=== PATIENT | female | born 1985 | race Two or more races ===

== ENCOUNTER → 2022-02-27 | Outpatient (CLI) | payer MEDICAID ==
[2022-02-27 08:54] LABS: Hematocrit 39.6 % (36.0-46.0); Hemoglobin 13.1 g/dL (12.2-16.2); Mean Corpuscular Hemoglobin 32.2 pg (28.0-32.0); Mean Corpuscular Hgb Conc. 33.1 g/dL (32.0-36.0); Mean Corpuscular Volume 97.1 fL (80.0-100.0); Red Blood Cells 4.08 10^6/uL (4.0-5.20); White Blood Cell 9.6 10^3/uL (4.4-10.8)
[2022-02-27 09:03] LABS: Basophils % (manual) 0 (0.0-2.0); Blast Cells 0; Metamyelocytes % 0; Myelocytes % 0; Promyelocytes % 0; Reactive Lymphocytes 0
== END | disposition home or self-care (01) ==
LOC: LAB 08:22
PROVIDERS: ATTEND Obstetrics & Gynecology
DX: O99.810 Abnormal glucose complicating pregnancy (principal); Z3A.00 Weeks of gestation of pregnancy not specified
CPT/HCPCS: 36415; 83036; 85007; 85027

== ENCOUNTER → 2022-03-08 | Outpatient (CLI) | payer MEDICAID | END | disposition home or self-care (01) | LOC: LAB 08:21 | PROVIDERS: ATTEND Obstetrics & Gynecology | DX: O99.810 Abnormal glucose complicating pregnancy (principal); Z3A.00 Weeks of gestation of pregnancy not specified | CPT/HCPCS: 82951 ==

== ENCOUNTER 2022-03-27 13:17 | Observation (INO) | payer MEDICAID ==
[~2022-03-27] VITALS: Ht 170.2 cm; Wt 104.3 kg
[2022-03-27] MEDS ORDERED: TERBUTALINE SULFATE 1 MG/ML 1ML VIAL SC SCH (15:00)
== END 2022-03-27 16:05 | disposition home or self-care (01) ==
LOC: UNDOADMOB 13:17 → LDRP 13:17
PROVIDERS: ADMIT Obstetrics & Gynecology; ATTEND Obstetrics & Gynecology
DX: O24.419 Gestational diabetes mellitus in pregnancy, unspecified control (principal); Z3A.31 31 weeks gestation of pregnancy
CPT/HCPCS: 59025; 76818; 81002; 82948; 82962; 94760; 96372; G0378; J3105

== ENCOUNTER 2022-04-03 09:59 | Observation (INO) | payer MEDICAID ==
[~2022-04-03] VITALS: Ht 170.2 cm; Wt 86.2 kg
[2022-04-03] MEDS ORDERED: TERBUTALINE SULFATE 1 MG/ML 1ML VIAL SC SCH (12:15)
== END 2022-04-03 13:15 | disposition home or self-care (01) ==
LOC: LDRP 10:59 → UNDOADMOB 10:59 → LDRP 11:46 → UNDODISOB 13:15
PROVIDERS: ADMIT Obstetrics & Gynecology; ATTEND Obstetrics & Gynecology
DX: O60.03 Preterm labor without delivery, third trimester (principal); O24.419 Gestational diabetes mellitus in pregnancy, unspecified control; Z3A.32 32 weeks gestation of pregnancy
CPT/HCPCS: 59025; 76818; 81002; 82948; 82962; 94760; 96372; G0378; J3105

== ENCOUNTER 2022-04-10 08:12 | Observation (INO) | payer MEDICAID ==
[~2022-04-10] VITALS: Ht 170.2 cm; Wt 101.6 kg
[2022-04-10] MEDS ORDERED: PREN-96 PO (15:07)
[2022-04-10] MEDS ORDERED: TERBUTALINE SULFATE 1 MG/ML 1ML VIAL SC SCH (16:00)
== END 2022-04-10 16:35 | disposition home or self-care (01) ==
LOC: UNDOADMOB 14:16 → LDRP 14:16
PROVIDERS: ADMIT Obstetrics & Gynecology; ATTEND Obstetrics & Gynecology
DX: O60.03 Preterm labor without delivery, third trimester (principal); O24.419 Gestational diabetes mellitus in pregnancy, unspecified control; Z3A.33 33 weeks gestation of pregnancy
CPT/HCPCS: 59025; 76818; 81002; 82948; 82962; 94760; 96372; G0378; J3105

== ENCOUNTER 2022-04-17 07:48 | Observation (INO) | payer MEDICAID ==
[~2022-04-17 07:48] MED LIST: PREN-96 PO
== END 2022-04-17 15:00 | disposition home or self-care (01) ==
LOC: LDRP 13:52
PROVIDERS: ADMIT Obstetrics & Gynecology; ATTEND Obstetrics & Gynecology
DX: O24.419 Gestational diabetes mellitus in pregnancy, unspecified control (principal); Z3A.34 34 weeks gestation of pregnancy
CPT/HCPCS: 59025; 76817; 76818; 81002; 82948; 82962; 94760; G0378

== ENCOUNTER → 2022-04-23 | Outpatient (CLI) | payer MEDICAID ==
[~2022-04-23] MED LIST changes: +NIFE10CA3 PO
[2022-04-23 10:54] LABS: Basophils # (auto) 0 10 ^3/uL (0-0.2); Basophils % (auto) 0.4 % (0.0-2.0); Eosinophils # (auto) 0.1 10 ^3/uL (0-0.8); Eosinophils % (auto) 0.9 % (0.0-7.0); Hematocrit 40.8 % (36.0-46.0); Hemoglobin 13.7 g/dL (12.2-16.2); Lymphocytes % (auto) 13.7 % (10.0-50.0); Mean Corpuscular Hemoglobin 32.3 pg (28.0-32.0); Mean Corpuscular Hgb Conc. 33.5 g/dL (32.0-36.0); Mean Corpuscular Volume 96.2 fL (80.0-100.0); Monocytes # (auto) 0.4 10 ^3/uL (0-1.3); Monocytes % (auto) 6.2 % (0.0-12.0); Neutrophils # (auto) 5.6 10 ^3/uL (1.6-8.6); Neutrophils % (auto) 78.8 % (37.0-80.0); Nucleated Red Blood Cells % 0.1 %; Red Blood Cells 4.24 10^6/uL (4.0-5.20); Red Cell Distribution Width 13.9 % (11.8-14.3); White Blood Cell 7.1 10^3/uL (4.4-10.8)
[2022-04-24 08:07] LABS: RPR Non Reactive (Non Reactive)
== END | disposition home or self-care (01) ==
LOC: LAB 10:24
PROVIDERS: ATTEND Obstetrics & Gynecology
DX: Z34.80 Encounter for supervision of other normal pregnancy, unspecified trimester (principal); Z3A.00 Weeks of gestation of pregnancy not specified
CPT/HCPCS: 36415; 84112; 85025; 86592

== ENCOUNTER 2022-04-24 07:57 | Observation (INO) | payer MEDICAID ==
[~2022-04-24 07:57] MED LIST changes: -NIFE10CA3 PO
[2022-04-24] MEDS ORDERED: NIFE10CA3 PO (11:28)
== END 2022-04-24 11:40 | disposition home or self-care (01) ==
LOC: LDRP 10:06 → UNDOADMOB 10:16 → LDRP 10:16
PROVIDERS: ADMIT Obstetrics & Gynecology; ATTEND Obstetrics & Gynecology
DX: O24.419 Gestational diabetes mellitus in pregnancy, unspecified control (principal); Z3A.35 35 weeks gestation of pregnancy
CPT/HCPCS: 59025; 76818; 81002; 82948; 82962; 94760; G0378

== ENCOUNTER 2022-05-01 11:28 | Observation (INO) | payer MEDICAID ==
[~2022-05-01 11:28] MED LIST changes: +NIFE10CA3 PO
== END 2022-05-01 12:38 | disposition home or self-care (01) ==
LOC: LDRP 11:39 → UNDOADMOB 11:39 → LDRP 11:43
PROVIDERS: ADMIT Obstetrics & Gynecology; ATTEND Obstetrics & Gynecology
DX: O24.419 Gestational diabetes mellitus in pregnancy, unspecified control (principal); O60.03 Preterm labor without delivery, third trimester; O09.523 Supervision of elderly multigravida, third trimester; Z3A.36 36 weeks gestation of pregnancy
CPT/HCPCS: 59025; 76818; 81002; 82948; 82962; 94760; G0378

== ENCOUNTER 2022-05-08 10:14 | Observation (INO) | payer MEDICAID | END 2022-05-08 11:35 | disposition home or self-care (01) | LOC: LDRP 10:14 → UNDOADMOB 10:14 → LDRP 10:48 | PROVIDERS: ADMIT Obstetrics & Gynecology; ATTEND Obstetrics & Gynecology | DX: O24.419 Gestational diabetes mellitus in pregnancy, unspecified control (principal); Z3A.37 37 weeks gestation of pregnancy; Z98.891 History of uterine scar from previous surgery | CPT/HCPCS: 59025; 76818; 81002; 82948; 82962; 94760; G0378 ==

== ENCOUNTER 2024-12-11 13:23 | Inpatient (IN) | payer MEDICAID ==
[~2024-12-11] VITALS: Ht 170.2 cm; Wt 95.9 kg
[~2024-12-11 13:23] MED LIST changes: +DOCU-94 PO; +HYDR-4902 PO; +IBUP-1456 PO; -NIFE10CA3 PO; +NIFE10CA58 PO
[2024-12-11 15:56] LABS: Chloride 106 mmol/L (98-107); Potassium 3.9 mmol/L (3.5-5.1); Sodium 138 mmol/L (136-145)
[2024-12-11 15:57] LABS: Anion Gap 8 (5-15); Calcium 10.2 mg/dL (8.7-10.4); Carbon Dioxide 24 mmol/L (20-31)
[2024-12-11 15:58] LABS: Hematocrit 36.5 % (36.0-46.0); Hemoglobin 11.8 g/dL (12.2-16.2); Mean Corpuscular Hemoglobin 27.1 pg (28.0-32.0); Mean Corpuscular Volume 84.2 fL (80.0-100.0); Nucleated Red Blood Cells % 0.1 %
[2024-12-11 16:02] LABS: BUN/Creatinine Ratio 12.5 (10.0-20.0); Blood Urea Nitrogen 9 mg/dL (9-23); Glucose 91 mg/dL (74-106)
--- NOTE | 2024-12-11 16:04 | ED.PDOC ---
History of Present Illness HPI Comments 39 y/o F presents with 3x month history of 'lump' to her left breast. Patient reports no significant pertinent medical history and coming to the ED, today, following recent development of said 'lump' increasing in size and having associated 'discharge leakage' after initial unprovoked and gradual onset. She denies any recent injuries, known skin contact exposure, or any known relevant events pertinent to her current condition. Patient denies having any associated pain, skin discoloration, fever, chills, or further associated symptoms. Chief Complaint: Wound Check Time Seen by MD: 15:15 Reviewed Notes: Nurses Notes, Medications, Allergies Allergies: Coded Allergies: NO KNOWN ALLERGIES (Unverified , 12/11/24) Information Source: Patient Mode of Arrival: Ambulatory Severity: Moderate Timing: Months Duration: Since onset Prehospital treatment: None Past Medical History PAST MEDICAL HISTORY: Denies Surgical History: Denies all surgeries ENERGY OPERATIONS VICE PRESIDENT History: No Pertinent ENERGY OPERATIONS VICE PRESIDENT History Family History Family History: Unknown Social History Smoker: Non-Smoker Alcohol: Denies ETOH Use Drugs: Denies Drug Use Lives In: Home All Other Systems: Reviewed and Negative (Comprehensive review of systems are negative unless otherwise stated in HPI) Physical Exam General Appearance: No Apparent Distress, Normal HEENT: Normal ENT Inspection, Pharynx Normal, TMs Normal Neck: Full Range of Motion, Non-Tender, Normal, Normal Inspection Respiratory: Chest Non-Tender, Lungs Clear, No Accessory Muscle Use, No Respiratory Distress, Normal Breath Sounds Cardiovascular: No Edema, No JVD, No Murmur, No Gallop, Normal Peripheral Pulses, Regular Rate/Rhythm Breast Exam: Deferred Gastrointestinal: No Organomegaly, Non Tender, No Pulsatile Mass, Normal Bowel Sounds, Soft Genitalia: Deferred Pelvic: Deferred Rectal: Deferred Extremities: No calf tenderness, Normal capillary refill, Normal inspection, Normal range of motion, Non-tender, No pedal edema Musculoskeletal : Apperance: Normal Neurologic: Alert, paediatric surgeon II-XII nml as Tested, No Motor Deficits, Normal Affect, Normal Mood, No Sensory Deficits Cerebellar Function: Normal Reflexes: Normal Skin: Dry, Normal Color, Warm, Other (5cm x 5 cm fluctuate mass to the left breast without obvious sign of discharge ) Lymphatic: No Adenopathy Was a procedure done? Was a procedure done?: No Differential Dx Considerations may include: malignant tumor, abscess, dermatitis, cellulitis, among others X-Ray, Labs, Meds, VS Vital Signs Date Time Temp Pulse Resp B/P (MAP) Pulse Ox O2 Delivery O2 Flow Rate FiO2 12/11/24 18:09 98.2 73 18 124/81 (95) 95 98.2 12/11/24 15:32 98.9 81 18 132/79 (96) 99 98.9 12/11/24 13:32 98.2 87 20 150/85 (106) 97 98.2 Lab Test 12/11/24 15:32 Range/Units White Blood Count 10.5 4.4-10.8 10^3/uL Red Blood Count 4.34 4.0-5.20 10^6/uL Hemoglobin 11.8 L 12.2-16.2 g/dL Hematocrit 36.5 36.0-46.0 % Mean Corpuscular Volume 84.2 80.0-100.0 fL Mean Corpuscular Hemoglobin 27.1 L 28.0-32.0 pg Mean Corpuscular Hemoglobin Concent 32.2 32.0-36.0 g/dL Red Cell Distribution Width 17.7 H 11.8-14.3 % Platelet Count 378 140-450 10^3/uL Mean Platelet Volume 7.7 6.9-10.8 fL Neutrophils (%) (Auto) 82.5 H 37.0-80.0 % Lymphocytes (%) (Auto) 9.5 L 10.0-50.0 % Monocytes (%) (Auto) 7.3 0.0-12.0 % Eosinophils (%) (Auto) 0.3 0.0-7.0 % Basophils (%) (Auto) 0.4 0.0-2.0 % Neutrophils # (Auto) 8.6 1.6-8.6 10 ^3/uL Lymphocytes # (Auto) 1.0 0.4-5.4 10 ^3/uL Monocytes # (Auto) 0.8 0-1.3 10 ^3/uL Eosinophils # (Auto) 0 0-0.8 10 ^3/uL Basophils # (Auto) 0 0-0.2 10 ^3/uL Nucleated Red Blood Cells 0.1 % Sodium Level 138 136-145 mmol/L Potassium Level 3.9 3.5-5.1 mmol/L Chloride Level 106 98-107 mmol/L Carbon Dioxide Level 24 20-31 mmol/L Anion Gap 8 5-15 Blood Urea Nitrogen 9 9-23 mg/dL Creatinine 0.72 0.550-1.02 mg/dL Glomerular Filtration Rate Calc 109 >90 mL/min BUN/Creatinine Ratio 12.5 10.0-20.0 Serum Glucose 91 74-106 mg/dL Calcium Level 10.2 8.7-10.4 mg/dL Time of 1ST Reevaluation: 15:45 Reevaluation 1ST: Unchanged Patient Education/Counseling: Need For Follow Up Family Education/Counseling: No Family Present Additional Information Previous encounters reviewed: N/A Labs/tests ordered: CBC, BMP, CT chest w/contrast Imaging results in concurrent agreement with:CT chest w/contrast Additional historians interviewed: N/A Discuss care to medical personal and: patient SEPSIS Sepsis Screen Date sepsis recognized/suspect: Dec 11, 2024 Time Sepsis recognized/suspect: 1339 Recent Procedure: No On Antibiotic Therapy: No Respiratory Rate >20: No Heart Rate >90: No Temp<36 C (96.8 F) or >38.3 C: No SBP <90 or MAP <65 mmHG: No New Acute Mental Status Change: No Is the patient on CPAP, BIPAP,: No Physician Orders Chest With Contrast (12/11/24 15:20) Saline Lock (12/11/24 15:22) Allergies (12/11/24 19:17) Code Status (12/11/24 19:17) Oxygen Per Hour (12/11/24 19:17) Hydrocodone-Acet 5/325mg Tab ([place] 5/32 (12/11/24 19:30) Ondansetron Hcl (Zofran) (12/11/24 19:30) Docusate Sodium Capsule (Colace Capsule) (12/11/24 19:30) Complete Blood Count (12/12/24 04:00) Comprehensive Metabolic Panel (12/12/24 04:00) Cardiac Diet-2gna,Lofat,Lochol (12/12/24 Breakfast) Condition: Serious (12/11/24 19:17) Acetaminophen Tablet (Tylenol Tablet) (12/11/24 19:30) Bedrest With Bathroom Privileg (12/11/24 19:17) Sequential Compression Device (12/11/24 ) Vital Signs Date Time Temp Pulse Resp B/P (MAP) Pulse Ox O2 Delivery O2 Flow Rate FiO2 12/11/24 18:09 98.2 73 18 124/81 (95) 95 98.2 12/11/24 15:32 98.9 81 18 132/79 (96) 99 98.9 12/11/24 13:32 98.2 87 20 150/85 (106) 97 98.2 Laboratory Tests Test 12/11/24 15:32 White Blood Count 10.5 10^3/uL (4.4-10.8) Departure 1 Departure Time of Disposition: 20:12 (Patient with a large breast tumor a concern for possible spread to other rest. Patient without good follow up and having severe pain. We will admit patient for further workup and expert consultation) Impression: Primary Impression: Breast mass in female Additional Impression: Breast pain Disposition: ADMITTED INPATIENT Admit to: Med Surg Condition: Serious Critical Care Note Critical Care Time?: No Stability Stability form required: No Heart Score Heart Score: Heart Score Response (Comments) Value History N/A 0 EKG N/A 0 Age N/A 0 Risk Factors N/A 0 Troponin N/A 0 Total 0 I personally scribed for JEROMY GABRIEL MD ([email or web address]) on 12/11/24 at 16:04. Electronically submitted by Cortes Massey ([email or web address]). JEROMY GABRIEL MD Dec 11, 2024 16:04
[2024-12-11] MEDS: IOHEXOL 300 MG/ML 100ML BOTTLE IJ ONE (16:35)
--- NOTE | 2024-12-11 17:10 | DVH ---
CT Chest without intravenous contrast INDICATION: left breast mass TECHNIQUE: Following IV administration of 80 mL Omnipaque [address] of the chest wa s performed from the lung apices to the upper abdomen. Axial, coronal and sagittal multiplanar reform ats were performed. Radiation Dose : 1. Chest: CTDI volume is 25 mGy. Dose-length product is 1006 mGy*cm The dose indicators for CT are the volume Computed Tomography (CT) Dose Index (CTDIvol) and the Dose Length Product (DLP), and are measured in units of mGy and mGy-cm, respectively. These indicators are not patient dose, but values generated from the CT scanner acquisition factors. The report includes radiation exposure data for exposures received during this examination. Comparison: None Findings: There is a roughly 12 x 10 cm tumor mass in the left breast with central necrosis growing out to the skin surface. There is fibroglandular stranding surrounding the mass. Mass does not appear to breach the pectoralis muscle or anterior ribcage There is a smaller mass in the right breast measuring roughly 4 by 2.8 cm. There are enlarged left axillary lymph nodes The heart size is normal and there is no pericardial effusion. No enlarged hilar or mediastinal lymph nodes On lung windows small scattered pulmonary nodules are present with the largest in the left upper lobe measuring 6 mm. Limited views of the upper abdomen unremarkable. No definite lytic or blastic lesions of bone IMPRESSION: 1. Malignancy of the left breast with large tumor mass measuring roughly 12 x 10 cm surrounded by inf lammatory or neoplastic tissues. There are enlarged left axillary lymph nodes 2. There is a smaller 4 x 2.8 cm mass in the right breast possibly also malignant 3. Small pulmonary metastasis are present Radiation optimization: All CT scans at this facility use at least one of these dose optimization jonh hniques: automated exposure control mA and/or kV adjustment per patient size (includes targeted exam s where dose is matched to clinical indication) or iterative reconstruction.
[2024-12-11] MEDS ORDERED: ONDANSETRON HCL 4 MG/2 ML VIAL IV PRN (19:30)
[2024-12-11] MEDS ORDERED: HYDROcodone-ACET 5/325MG TAB PO PRN (19:30)
[2024-12-11] MEDS ORDERED: DOCUSATE SOD 100 MG CAP PO PRN (19:30)
[2024-12-11] MEDS ORDERED: NITROGLYCERIN 0.4 MG SL TAB SL PRN (21:15)
[2024-12-11] MEDS ORDERED: MORPHINE SULFATE INJ 2 MG/ml SYRG IV PRN (21:15)
--- NOTE | 2024-12-11 21:31 | DVHHP2 ---
History of Present Illness Reason for Visit: Breast mass in female History of Present Illness The patient is a 39-year-old female who denies past medical history presented to [facility] ED with complaint of lump of her left breast. Patient reports she has been experiencing left breast lump for couple of months now, notice lung increasing in size, associated with discharge leakage, pain, getting worse today that prompted this visit. Patient was seen and evaluated in the ED, laboratory data shows WBC 10.5, platelets 378, sodium 138, potassium 3.9, BUN nine, creatinine 0.72, glucose 91, calcium 10.2, blood pressure 124/81, heart rate 74, temperature 98.2 F, O2 saturation 96% on room air. Chest CT revealing malignancy of the left breast with large tumor mass measuring roughly 12 x 10 cm surrounding by inflammatory or neoplastic tissues; enlarged left axillary lymph nodes; there is a smaller 4 x 2.8 cm mass in the right breaths possibly also mal ignant, small pulmonary metastasis present. Please see medication orders section in the computer. On my assessment, patient denied chest pain, no headache, no dizziness, no shortness of breaths, no nausea, no vomiting, no fever, no chills. Patient was admitted for further evaluation and medical management. Past Medical History Denies past medical history Past Surgical History Denies all surgeries Family History Reviewed, noncontributory to the management of this case. Past Social History The patient lives at home, denies smoking, alcohol or illicit drugs abuse. Review of Systems Constitutional: Yes: Other (Left breast pain/swelling); No: Fever, Chills, Sweats, Weakness, Malaise Eyes: No: Pain, Vision change, Conjunctivae inflammation, Eyelid inflammation, Other, Redness ENT: No: Ear pain, Ear discharge, Nose pain, Nose discharge, Nose congestion, Mouth pain, Mouth swelling, Throat pain, Throat swelling, Other Respiratory: No: Cough, Dry, Shortness of breath, SOB with excertion, Wheezing, Hemoptysis, Pleuritic Pain, Sputum, Wheezing, Other Cardiovascular: No: Chest Pain, Palpitations, Orthopnea, Paroxysmal Noc. Dyspnea, Edema, Lt Headedness, Other Gastrointestinal: No: Nausea, Vomiting, Abdominal Pain, Diarrhea, Constipation, Melena, Hematochezia, Other Genitourinary: No Dysuria, No Frequency, No Incontinence, No Hematuria, No Retention, No Other Musculoskeletal: No: other, neck pain, shoulder pain, arm pain, back pain, hand pain, leg pain, foot pain Skin: Other (Left breast discharge); No: Rash, Lesions, Jaundice, Bruising Neurological: No: Weakness, Numbness, Incoordination, Change in speech, Confusion, Seizures, Other Allergies: Coded Allergies: NO KNOWN ALLERGIES (Unverified , 12/11/24) Medications Current Medications Medications Dose Ordered Sig/Vilma Route Start Time Stop Time Status Last Admin Dose Admin Acetaminophen/ Hydrocodone Bitart 1 tab Q4HP PRN PO 12/11/24 19:30 Ondansetron HCl 4 mg Q4HP PRN IV 12/11/24 19:30 Docusate Sodium 100 mg BIDPRN PRN PO 12/11/24 19:30 Acetaminophen 650 mg Q6HP PRN PO 12/11/24 19:30 Exam Vital Signs Vital Signs Date Time Temp Pulse Resp B/P (MAP) Pulse Ox O2 Delivery O2 Flow Rate FiO2 12/11/24 20:12 98.0 69 16 114/76 (89) 98 98.0 General Appearance: Alert, Oriented X3, Cooperative, No acute distress, Other (Left breast swelling) HEENT: Atraumatic, PERRLA, EOMI, Mucous membr. moist/pink Respiratory: Normal air movement Cardiovascular: Regular rate, Normal S1, Normal S2, No murmurs Abdominal: Normal bowel sounds, Soft, No tenderness, No hepatospenomegaly, No masses Extremities: No clubbing, No cyanosis, No edema, Normal pulses, No tenderness/swelling Skin: No rashes, No breakdown, No significant lesion Neuro: Normal gait, Normal speech, Strength at 5/5 X4 ext, Normal tone, Sensation intact, Cranial nerves 3-12 NL, Reflexes 2+ Psych/Mental Status: Mental status NL, Mood NL Labs/Xrays Labs Test 12/11/24 15:32 Range/Units White Blood Count 10.5 4.4-10.8 10^3/uL Red Blood Count 4.34 4.0-5.20 10^6/uL Hemoglobin 11.8 L 12.2-16.2 g/dL Hematocrit 36.5 36.0-46.0 % Mean Corpuscular Volume 84.2 80.0-100.0 fL Mean Corpuscular Hemoglobin 27.1 L 28.0-32.0 pg Mean Corpuscular Hemoglobin Concent 32.2 32.0-36.0 g/dL Red Cell Distribution Width 17.7 H 11.8-14.3 % Platelet Count 378 140-450 10^3/uL Mean Platelet Volume 7.7 6.9-10.8 fL Neutrophils (%) (Auto) 82.5 H 37.0-80.0 % Lymphocytes (%) (Auto) 9.5 L 10.0-50.0 % Monocytes (%) (Auto) 7.3 0.0-12.0 % Eosinophils (%) (Auto) 0.3 0.0-7.0 % Basophils (%) (Auto) 0.4 0.0-2.0 % Neutrophils # (Auto) 8.6 1.6-8.6 10 ^3/uL Lymphocytes # (Auto) 1.0 0.4-5.4 10 ^3/uL Monocytes # (Auto) 0.8 0-1.3 10 ^3/uL Eosinophils # (Auto) 0 0-0.8 10 ^3/uL Basophils # (Auto) 0 0-0.2 10 ^3/uL Nucleated Red Blood Cells 0.1 % Sodium Level 138 136-145 mmol/L Potassium Level 3.9 3.5-5.1 mmol/L Chloride Level 106 98-107 mmol/L Carbon Dioxide Level 24 20-31 mmol/L Anion Gap 8 5-15 Blood Urea Nitrogen 9 9-23 mg/dL Creatinine 0.72 0.550-1.02 mg/dL Glomerular Filtration Rate Calc 109 >90 mL/min BUN/Creatinine Ratio 12.5 10.0-20.0 Serum Glucose 91 74-106 mg/dL Calcium Level 10.2 8.7-10.4 mg/dL PATIENT: TC MCCAULEYACCT: [id number] UNIT: [id number] : 1985 LOC: ER ROOM / BED: / AGE / SEX: 39 / F ADM STATUS: REG ER SERVICE 1520 ORDERING PHYSICIAN: JEROMY GABRIEL MD PROCEDURE(s): CXICT - CHEST WITH CONTRAST REASON: left breast mass ORDER NUMBER(s): [id number], ACCESSION NUMBER(s): [id number] CT Chest without intravenous contrast INDICATION: left breast mass TECHNIQUE: Following IV administration of 80 mL Omnipaque [address] of the chest was performed from the lung apices to the upper abdomen. Axial, coronal and sagittal multiplanar reformats were performed. Radiation Dose: 1. Chest: CTDI volume is 25 mGy. Dose-length product is 1006 mGy*cm The dose indicators for CT are the volume Computed Tomography (CT) Dose Index (CTDIvol) and the Dose Length Product (DLP), and are measured in units of mGy and mGy-cm, respectively. These indicators are not patient dose, but values generated from the CT scanner acquisition factors. The report includes radiation exposure data for exposures received during this examination. Comparison: None Findings: There is a roughly 12 x 10 cm tumor mass in the left breast with central necrosis growing out to the skin surface. There is fibroglandular stranding surrounding the mass. Mass does not appear to breach the pectoralis muscle or anterior ribcage There is a smaller mass in the right breast measuring roughly 4 by 2.8 cm. There are enlarged left axillary lymph nodes The heart size is normal and there is no pericardial effusion. No enlarged hilar or mediastinal lymph nodes On lung windows small scattered pulmonary nodules are present with the largest in the left upper lobe measuring 6 mm. Limited views of the upper abdomen unremarkable. No definite lytic or blastic lesions of bone IMPRESSION: 1. Malignancy of the left breast with large tumor mass measuring roughly 12 x 10 cm surrounded by inflammatory or neoplastic tissues. There are enlarged left axillary lymph nodes 2. There is a smaller 4 x 2.8 cm mass in the right breast possibly also malignant 3. Small pulmonary metastasis are present SEPSIS Sepsis Screen Date sepsis recognized/suspect: Dec 11, 2024 Time Sepsis recognized/suspect: 1340 Recent Procedure: No On Antibiotic Therapy: No Respiratory Rate >20: No Heart Rate >90: No Temp<36 C (96.8 F) or >38.3 C: No SBP <90 or MAP <65 mmHG: No New Acute Mental Status Change: No Is the patient on CPAP, BIPAP,: No Physician Orders Chest With Contrast (12/11/24 15:20) Saline Lock (12/11/24 15:22) Allergies (12/11/24 19:17) Code Status (12/11/24 19:17) Oxygen Per Hour (12/11/24 19:17) Hydrocodone-Acet 5/325mg Tab ([place] 5/32 (12/11/24 19:30) Ondansetron Hcl (Zofran) (12/11/24 19:30) Docusate Sodium Capsule (Colace Capsule) (12/11/24 19:30) Complete Blood Count (12/12/24 04:00) Comprehensive Metabolic Panel (12/12/24 04:00) Cardiac Diet-2gna,Lofat,Lochol (12/12/24 Breakfast) Condition: Serious (12/11/24 19:17) Acetaminophen Tablet (Tylenol Tablet) (12/11/24 19:30) Bedrest With Bathroom Privileg (12/11/24 19:17) Sequential Compression Device (12/11/24 ) Admit (12/11/24 21:09) Nitroglycerin Sublingual (Ntrostat Subli (12/11/24 21:15) Morphine Sulfate Injection (12/11/24 21:15) Notify Md Of Changes From Base (12/11/24 21:09) Emergency Dysrhythmia Protocol (12/11/24 21:09) Oxygen By Nasal Cannula (12/11/24 21:09) Vital Signs Date Time Temp Pulse Resp B/P (MAP) Pulse Ox O2 Delivery O2 Flow Rate FiO2 12/11/24 20:12 98.0 69 16 114/76 (89) 98 98.0 12/11/24 18:09 98.2 73 18 124/81 (95) 95 98.2 12/11/24 15:32 98.9 81 18 132/79 (96) 99 98.9 12/11/24 13:32 98.2 87 20 150/85 (106) 97 98.2 Laboratory Tests Test 12/11/24 15:32 White Blood Count 10.5 10^3/uL (4.4-10.8) Assessment/Plan Assessment/Plan Breast mass in female Breast pain Breast cancer, left Plan 1. Admit to med surge unit 2. Breathing treatment 3. Pain control management 4. Management of fluids and electrolytes 5. Consultation for Hematology/Oncology 6. Diagnostic tests chest CT 7. DVT prophylaxis on SCDs 8. Repeat labs CBC, CMP in a.m. 9. Continue with current medical management 10. Treatment plan discussed with patient and RN. Patient verbalized rere jessica. Plan discussed with: Patient, Other (RN) My Orders Orders - RADHA JEFFERSON DNP Procedure Category Date Status Time Allergies [place] 12/11/24 In Process 19:17 Code Status CODE 12/11/24 Transmitted 19:17 Oxygen Per Hour RT 12/11/24 Transmitted 19:17 Hydrocodone-Acet PHA 12/11/24 In Process 5/325mg Tab ([place] 19:30 Ondansetron Hcl PHA 12/11/24 In Process (Zofran) 19:30 Docusate Sodium PHA 12/11/24 In Process Capsule (Colace 19:30 Complete Blood Count LAB 12/12/24 Verified 04:00 Comprehensive LAB 12/12/24 Verified Metabolic Panel 04:00 Cardiac DIET 12/12/24 Transmitted Diet-2gna,Lofat,Lochol Breakfast Condition: Serious [place] 12/11/24 In Process 19:17 Acetaminophen Tablet PHA 12/11/24 In Process (Tylenol Tablet) 19:30 Bedrest With Bathroom [place] 12/11/24 In Process Privileg 19:17 Sequential [place] 12/11/24 In Process Compression Device Admit ADMIT 12/11/24 Transmitted 21:09 Nitroglycerin PHA 12/11/24 Transmitted Sublingual (Ntrostat 21:15 Morphine Sulfate PHA 12/11/24 Transmitted Injection 21:15 Notify Of Changes [facility] [place] 12/11/24 Transmitted From Base 21:09 Emergency Dysrhythmia [facility] [place] 12/11/24 Transmitted Protocol 21:09 Oxygen By Nasal RT 12/11/24 Transmitted Cannula 21:09 Problem List: (1) Breast mass in female (2) Breast pain (3) Breast cancer, left Date of Service: Dec 11, 2024 Billing Provider: RADHA JEFFERSON DNP Common Visit Codes: [id number] INP/OBS CARE (HIGH) RADHA JEFFERSON DNP Dec 11, 2024 21:31
[2024-12-12] VITALS (7 sets, daily range): BP systolic 106–130; BP diastolic 67–82; PULSE 68–81; RESP 16–19; TEMP 97.6–98.6; O2SAT 96–100
[2024-12-12 06:15] LABS: Hematocrit 32.8 % (36.0-46.0); Hemoglobin 10.7 g/dL (12.2-16.2); Mean Corpuscular Hemoglobin 27.3 pg (28.0-32.0); Mean Corpuscular Volume 83.5 fL (80.0-100.0); Nucleated Red Blood Cells % 0.0 %
[2024-12-12 06:34] LABS: Alanine Aminotransferase 21 U/L (7-40); Albumin 4.2 g/dL (3.2-4.8); Alkaline Phosphatase 64 U/L (46-116); Anion Gap 8 (5-15); BUN/Creatinine Ratio 15.5 (10.0-20.0); Blood Urea Nitrogen 11 mg/dL (9-23); Calcium 9.7 mg/dL (8.7-10.4); Carbon Dioxide 26 mmol/L (20-31); Chloride 105 mmol/L (98-107); Glucose 76 mg/dL (74-106); Potassium 3.5 mmol/L (3.5-5.1); Sodium 139 mmol/L (136-145); Total Protein 7.2 g/dL (5.7-8.2)
[2024-12-12 06:35] LABS: Bilirubin, Total 0.4 mg/dL (0.2-1.0)
--- NOTE | 2024-12-12 15:55 | DVHPN2 ---
Subjective Discussed with her in lenght about possible cancer diagnosis of breast, her mother has breast cancer Reviewed: H&P, Labs Changes from previous H/P or p: No Changes Eyes: No Pain, No Vision change, No Conjunctivae inflammation, No Eyelid inflammation, No Other, No Redness ENT: No Ear pain, No Ear discharge, No Nose pain, No Nose discharge, No Nose congestion, No Mouth pain, No Mouth swelling, No Throat pain, No Throat swelling, No Other Cardiovascular: No Chest Pain, No Palpitations, No Orthopnea, No Paroxysmal Noc. Dyspnea, No Edema, No Lt Headedness, No Other Respiratory: No Cough, No Dry, No Shortness of breath, No SOB with excertion, No Wheezing, No Hemoptysis, No Pleuritic Pain, No Sputum, No Other Gastrointestinal: No Nausea, No Vomiting, No Abdominal Pain, No Diarrhea, No Constipation, No Melena, No Hematochezia, No Other Genitourinary: No Dysuria, No Frequency, No Incontinence, No Hematuria, No Retention, No Other Musculoskeletal: No other, No neck pain, No shoulder pain, No arm pain, No back pain, No hand pain, No leg pain, No foot pain Skin: No Rash, No Lesions, No Jaundice, No Bruising; Other (Left breast discharge) Objective Vitals Vital Signs Date Time Temp Pulse Resp B/P (MAP) Pulse Ox O2 Delivery O2 Flow Rate FiO2 12/12/24 13:00 98.3 80 19 112/73 (86) 97 98.3 12/12/24 08:00 Room Air* 0 21 Intake/Output Intake and Output 12/12/24 07:00 Intake Total 400 ml Balance 400 ml Intake Oral 400 ml General Appearance: Alert, Oriented X3 HEENT: Atraumatic Lungs: Clear to auscultation Cardiovascular: Regular rate, Normal S1, Normal S2 Abdomen: Normal bowel sounds Medications Current Medications Medications Dose Ordered Sig/Vilma Route Start Time Stop Time Status Last Admin Dose Admin Acetaminophen/ Hydrocodone Bitart 1 tab Q4HP PRN PO 12/11/24 19:30 Ondansetron HCl 4 mg Q4HP PRN IV 12/11/24 19:30 Docusate Sodium 100 mg BIDPRN PRN PO 12/11/24 19:30 Acetaminophen 650 mg Q6HP PRN PO 12/11/24 19:30 Nitroglycerin 0.4 mg Q5MINP PRN SL 12/11/24 21:15 Morphine Sulfate 2 mg Q30M PRN IV 12/11/24 21:15 Laboratory Results Laboratory Tests 12/12/24 05:41 Chemistry Test 12/12/24 05:41 Albumin 4.2 g/dL (3.2-4.8) Calcium Level 9.7 mg/dL (8.7-10.4) Total Protein 7.2 g/dL (5.7-8.2) LFT Test 12/12/24 05:41 Alanine Aminotransferase (ALT) 21 U/L (7-40) Alkaline Phosphatase 64 U/L (46-116) Aspartate Amino Transferase (AST) 33 U/L (13-40) Total Bilirubin 0.4 mg/dL (0.2-1.0) Assessment/Plan Assessment/Plan Breast mass in female Breast pain Breast cancer, left IR consult for biopsy oncology consult Plan discussed with: Patient My Orders Orders - GEOFF LOBO MD Procedure Category Date Status Time * Radiologist Consult CONS 12/12/24 Transmitted 15:53 Date of Service: Dec 12, 2024 Billing Provider: GEOFF LOBO MD Common Visit Codes: [id number] INP/OBS CARE(HIGH) GEOFF LOBO MD Dec 12, 2024 15:55
[2024-12-13 01:00] VITALS: BP 101/64; PULSE 70; RESP 18; TEMP 98.3; O2SAT 98
[2024-12-13 05:00] VITALS: BP 106/70; PULSE 73; RESP 18; TEMP 97.8; O2SAT 97
[2024-12-13 09:00] VITALS: BP 112/75; PULSE 76; RESP 17; TEMP 98.4; O2SAT 97
[2024-12-13] MEDS: ACETAMINOPHEN 325 MG TAB PO PRN (10:14)
--- NOTE | 2024-12-13 10:47 | DVH ---
US ULTRASOUND GUIDED BREAST LOC, HISTORY: BREAST BX PROCEDURE: Informed consent was obtained. The patient was positioned supine on the table, and limited US was performed of the left breast mass. The skin overlying the biopsy site was prepped with chlor hexidine which was allowed to dry. Time out was performed. The entry site was anesthetized with 1% li docaine. A 18 gauge Biopince needle was advanced into the mass. Multiple core biopsy samples were obt ained of the solid components using the 18 gauge biopsy needle. A 6 Fr Skater needle catheter was michela aby into the cystic portion, and 370 mL was aspirated. The samples were sent to formalin to pathology for analysis. Imaging through the biopsy site was performed. No immediate complication was identifi ed. FINDINGS: Large cystic and solid left breast mass. Intra-procedural images show the biopsy needle at the lesion. No significant post biopsy hemorrhage is identified. IMPRESSION: US guided core biopsy of the left breast mass solid component. US guided aspiration of the left breast mass cystic component with 370 mL removed.
[2024-12-13 13:00] VITALS: BP 121/78; PULSE 74; RESP 17; TEMP 98.2; O2SAT 96
[2024-12-13 15:25] VITALS: TEMP 36.8
== END 2024-12-13 16:50 | disposition home or self-care (01) | DRG 382 ==
LOC: ER 13:23 → MERGE 21:09 → OVERFLOW 21:09 → WEST WING 23:56
PROVIDERS: ADMIT Hospitalist; ATTEND Hospitalist
PROC: 0HBU3ZX Excision of Left Breast, Percutaneous Approach, Diagnostic (ICD-10-PCS; principal; 2024-12-13)
PROC: 0H9U30Z Drainage of Left Breast with Drainage Device, Percutaneous Approach (ICD-10-PCS; 2024-12-13)
DX: C50.912 Malignant neoplasm of unspecified site of left female breast (principal); Z79.899 Other long term (current) drug therapy; Z80.3 Family history of malignant neoplasm of breast
CPT/HCPCS: 10005; 36415; 71260; 76942; 80048; 80053; 85025; C1729; G0378